=== PATIENT | male | born 1970 | race African-American/Black ===

== ENCOUNTER 2020-09-24 05:35 | Inpatient (IN) ==
[2020-09-24 06:57] LABS: BASOPHILS % (AUTO) 0.3 % (0.2-1.0); EOSINOPHILS % (AUTO) 0.5 % (0.9-2.9); HEMOGLOBIN 10.4 g/dL (13.5-18.0); LYMPHOCYTES # (AUTO) 0.8 X10^3/uL (1.3-2.9); LYMPHOCYTES % (AUTO) 17.8 % (21.0-51.0); MEAN CORPUSCULAR HEMOGLOBIN 23.3 pg (27.0-34.0); MEAN CORPUSCULAR HGB CONC 32.7 g/dL (33.0-35.0); MEAN CORPUSCULAR VOLUME 71.1 fL (80.0-100.0); MEAN PLATELET VOLUME 9.1 fL (7.4-11.0); MONOCYTES # (AUTO) 0.5 x10^3/uL (0.3-0.8); MONOCYTES % (AUTO) 10.6 % (0.0-13.0); NEUTROPHILS # (AUTO) 3.4 x10^3/uL (2.2-4.8); NEUTROPHILS % (AUTO) 70.8 % (42.0-75.0); PLATELET COUNT 187 X10^3/uL (150.0-450.0); RED BLOOD COUNT 4.49 X10^6/uL (4.7-6.0); RED CELL DISTRIBUTION WIDTH 15.4 % (11.6-16.5); WHITE BLOOD COUNT 4.7 X10^3/uL (3.6-10.0)
[2020-09-24 07:05] LABS: BLOOD UREA NITROGEN 11 mg/dL (7-18); CALCIUM 8.3 mg/dL (8.5-10.1); CARBON DIOXIDE 35.4 mmol/L (21-32); CHLORIDE 100 mmol/L (98-107); COR NA(FOR HYPERGLY) 141 mmol/L (136-145); CREATININE 1.01 mg/dL (0.70-1.30); SODIUM 140 mmol/L (136-145); eGFR NON BLACK RACES > 60 (>60)
--- NOTE | 2020-09-24 07:07 | RAD ---
HISTORYCough and wheezingSTUDYAP chestCOMPARISONNoneFINDINGSExtensive bilateral lower lobe airspace disease obscures the lower cardiac margins and diaphragm surfaces. The upper lobes are relatively clear. No pneumothorax is seen.IMPRESSIONBilateral lower lobe densities consistent with pneumonia and/or pulmonary edema. Pleural fluid components are not definitely identified but may be present.Electronically signed by: CHRISTOPHER ABDI (Sep 24, 2020 07:06:00)
[2020-09-24 07:10] LABS: LACTATE DEHYDROGENASE 324 Units/L (85-227)
[2020-09-24 07:11] LABS: LACTIC ACID 1.4 mmol/L (0.4-2.0)
[2020-09-24] MEDS ORDERED: NS + KCL 20 MEQ/L 1,000 ML IV PRN (07:16)
[2020-09-24] MEDS ORDERED: KLOR-CON ONE (07:18)
[2020-09-24] MEDS ORDERED: NS + KCL 20 MEQ/L 1,000 ML IV ONE (07:18)
[2020-09-24] MEDS ORDERED: KLOR-CON PO PRN ×2 (07:19→12:19)
[2020-09-24 07:21] LABS: HYPOCHROMASIA SLIGHT; PLATELET MORPHOLOGY COMMENT NORMAL (NORMAL)
[2020-09-24 07:22] LABS: MICROCYTOSIS SLIGHT
--- NOTE | 2020-09-24 08:35 | DR.URIAD ---
HPI Time Seen Time Seen by Provider: 09/24/20 06:27 PCP Primary Care Physician: HPI Comment HPI Comment: PATIENT IS 50YR OLD MALE IN ER WITH INCREASING SOB AND COUGH AND WHEEZING TIMES ONE MONTH. WORSE TODAY. OXYGEN DESATURATION NOTED IN ER. REPORT CONGESTION FOR FEW DAYS. NO FEVER, NAUSEA, VOMITING OR DIARRHEA. HAVE PLEURITIC CHEST PAIN. Complaint Chief Complaint Doctors Comments: INCREASING SOB AND COUGH TIME ONE MONTH. WORSE TODAY. Chief Complaint:: C/O COUGH AND WHEEZING FOR APPROX 1 MONTH. LEGS AND FETT SWOLLEN COVID-19 Coronavirus risk:travel/contact w/high risk person: No Has patient experienced Coronavirus symptoms: Yes Coronavirus symptoms experienced: Coughing and Shortness of Breath Reviewed Nurses Notes Reviewed: Yes Source History Provided: Patient and Significant Other Mode of Arrival Mode of Arrival: Ambulatory Timing Onset of Chief Complaint: 09/23/20 Context Recent Treated Infections: None History of Respiratory: None Quality Quality of Cough: Productive and Yellow Rhinorrhea: Clear Shortness of Breath: Moderate Associated Signs and Symptoms Other Signs and Symptoms: Cough, Shortness of Breath, URI and Wheeze PMH PMH Past Medical History: Yes Past Medical History: Diabetes and Hypertension Past Surgical History: Yes Surgical History: Tonsillectomy Family History History of Family Medical Conditions: Yes Family Medical History: Diabetes Mellitus, Cancer and Hypertension Social History Does patient currently use any type of tobacco product: No Have you used tobacco products in the last 12 months: No Type of Tobacco Use: None Does any household member use tobacco: No Alcohol Use: Occasionally Do you use any recreational Drugs:: No Lives With: Spouse Lives Where: Home Travel Risk Coronavirus risk:travel/contact w/high risk person: No Has patient experienced Coronavirus symptoms: Yes Coronavirus symptoms experienced: Coughing and Shortness of Breath Infectious screening In the last 2 months have you had wt loss of >10#?: NO Have you had fever, night sweats or hemotysis?: No Have you traveled outside the country in the last 6 months?: No Isolation: Standard ROS Review of Systems Constitutional: See HPI, Weakness and Fatigue; negative Fever Eyes: No Symptoms Reported and See HPI; negative Blurred Vision and Diplopia ENTM: See HPI and Nose Congestion; negative Nose Discharge and Throat Pain Respiratoy: See HPI, Moist Cough, Short of Breath and Wheezing Cardiovascular: See HPI, Chest Pain and Edema Gastrointestinal/Abdominal: No Symptoms Reported and See HPI; negative Abdominal Pain, Diarrhea, Nausea and Vomiting Genitourinary: No Symptoms Reported and See HPI; negative Dysuria, Frequency and Hematuria Neurological: See HPI and Weakness; negative Headache and Dizziness Musculoskeletal: No Symptoms Reported and See HPI; negative Back Pain and Muscle Pain Integumentary: No Symptoms Reported and See HPI; negative Change in Color, Rash and Juandice Hematologic/Lymphatic: No Symptoms Reported and See HPI; negative Easy Bruising and Swollen Glands Endocrine: No Symptoms Reported and See HPI; negative Increased Thirst and Increased Urine Psychiatric: No Symptoms Reported and See HPI All Other Systems: Reviewed and Negative PE Vital Signs Vitals: Temperature 98 F Pulse Rate 77 Respiratory Rate 11 Blood Pressure 177/121 O2 Sat by Pulse Oximetry 100 General Limitations: No Limitations General Appearance: Alert and In No Apparent Distress Head Head Exam: Normal Inspection and Atraumatic Eyes Eye exam: Normal Appearance and PERRL ENT ENT Exam: Normal Exam, Normal Oropharynx, Normal External Ear Exam and TM's Normal Bilaterally External Ear Exam: Normal External Inspection; negative Mastoid Tenderness TM/Canal Exam: Bilateral: Normal Nose Exam: Normal Nose Exam Nasal Speculum Exam: Bilateral: Normal Mouth Exam: Normal Inspection; negative Lip Swelling and Tongue Swelling Throat Exam: Normal Inspection; negative Tonsillar Erythema, Tonsillomegaly and Tonsillar Exudate Neck Neck Exam: Normal Inspection and Trachea Midline; negative Tenderness and Lymphadenopathy Chest Chest Inspection: Normal Inspection and Symmetric Chest Wall Rise; negative Tenderness Respiratory Respiratory Exam: Normal Lung Sounds Bilat, Accessory Muscle Use and Respiratory Distress; negative Chest Wall Tenderness Respiratory Exam: Bilateral: Wheezing and Lower: Wheezing and Lower: Rhonchi Cardiovascular Cardiovascular Exam: Regular Rate, Normal Rhythm and Normal Heart Sounds; negative Systolic Murmur and Diastolic Murmur Abdominal Exam Abdominal Exam: Normal Inspection, Normal Bowel Sounds and Soft; negative Tenderness Extremeties Extremities Exam: Normal Capillary Refill and Edema; negative Tenderness and Calf Tenderness Back Back Exam: Normal Inspection; negative (R) CVA Tenderness and (L) CVA Tenderness Neurologic Neurological Exam: Alert, Oriented X3 and CN II-XII Intact; negative Motor Sensory Deficit Psychiatric Psychiatric Exam: Normal Affect and Normal Mood Skin Skin Exam: negative Warm, Dry, Normal Color and Rash MDM Additional Information Additional Information Obtained From: Family Differential Diagnosis Differential Diagnosis: Viral pharyngitis, Pneumonia, Sinsusitis and URI COURSE Treatment Treatment: SEE ORDERS. Consultation Consultation Comments: DISCUSSED PATIENT WITH DR. MCCORMACK. HE WILL ADMIT PATIENT. Education/Counseling Education/Counseling: Patient Educated On: Diagnosis and Needs for Follow Up ROR Labs Reviewed Laboratory Results Reviewed?: Yes Result Diagrams: 09/27/20 05:40 09/27/20 05:40 Laboratory: 09/24/20 07:55 Blood Blood Culture - Final 09/24/20 07:46 Blood Blood Culture - Final WBC 4.7 X10^3/uL (3.6-10.0) 09/24/20 06:42 RBC 4.49 X10^6/uL (4.7-6.0) L 09/24/20 06:42 Hgb 10.4 g/dL (13.5-18.0) L 09/24/20 06:42 Hct 32.0 % (42.0-54.0) L 09/24/20 06:42 MCV 71.1 fL (80.0-100.0) L 09/24/20 06:42 MCH 23.3 pg (27.0-34.0) L 09/24/20 06:42 MCHC 32.7 g/dL (33.0-35.0) L 09/24/20 06:42 RDW 15.4 % (11.6-16.5) 09/24/20 06:42 Plt Count 187 X10^3/uL (150.0-450.0) 09/24/20 06:42 Plt Count Comment Adequate (ADEQUATE) 09/24/20 06:42 MPV 9.1 fL (7.4-11.0) 09/24/20 06:42 Neut % (Auto) 70.8 % (42.0-75.0) 09/24/20 06:42 Lymph % (Auto) 17.8 % (21.0-51.0) L 09/24/20 06:42 Bosque % (Auto) 10.6 % (0.0-13.0) 09/24/20 06:42 Eos % (Auto) 0.5 % (0.9-2.9) L 09/24/20 06:42 Baso % (Auto) 0.3 % (0.2-1.0) 09/24/20 06:42 Neut # (Auto) 3.4 x10^3/uL (2.2-4.8) 09/24/20 06:42 Lymph # (Auto) 0.8 X10^3/uL (1.3-2.9) L 09/24/20 06:42 [place]que # (Auto) 0.5 x10^3/uL (0.3-0.8) 09/24/20 06:42 Eos # (Auto) 0.0 x10^3/uL (0.0-0.2) 09/24/20 06:42 Baso # (Auto) 0.0 X10^3/uL (0.0-0.1) 09/24/20 06:42 Absolute Nucleated RBC 0.0 /100WBC 09/24/20 06:42 Plt Morphology Comment Normal (NORMAL) 09/24/20 06:42 RBC Morphology Abnormal (NORMAL) 09/24/20 06:42 Hypochromasia Slight A 09/24/20 06:42 Microcytosis Slight A 09/24/20 06:42 D-Dimer 0.50 ug/ml (0.0-0.57) 09/24/20 06:42 Sample Site Rr 09/24/20 09:27 ABG pH 7.510 (7.35-7.45) H 09/24/20 09:27 ABG pCO2 47.0 mmHg (35.0-45.0) H 09/24/20 09:27 ABG pO2 47.0 mmHg (80.0-100.0) L* 09/24/20 09:27 ABG HCO3 37.5 mmol/L (22-26) H* 09/24/20 09:27 ABG O2 Saturation 87.0 % (90-100) L 09/24/20 09:27 ABG Base Excess 12.8 mmol/L (-2.0-2.0) H 09/24/20 09:27 Robinson Test Pos 09/24/20 09:27 A-a Gradient 94.0 mmHg 09/24/20 09:27 FiO2 28.0 09/24/20 09:27 Blood Gas Comments Pt tyra well cdn 09/24/20 09:27 Sodium 140 mmol/L (136-145) 09/24/20 06:42 Corrected Sodium 141 mmol/L (136-145) 09/24/20 06:42 Potassium 2.6 mmol/L (3.5-5.1) L* 09/24/20 09:56 Chloride 100 mmol/L (98-107) 09/24/20 06:42 Carbon Dioxide 35.4 mmol/L (21-32) H 09/24/20 06:42 BUN 11 mg/dL (7-18) 09/24/20 06:42 Creatinine 1.01 mg/dL (0.70-1.30) 09/24/20 06:42 Est GFR (MDRD) Af Amer > 60 (>60) 09/24/20 06:42 Est GFR (MDRD) Non-Af > 60 (>60) 09/24/20 06:42 Glucose 146 mg/dL (65-99) H 09/24/20 06:42 Lactic Acid 1.4 mmol/L (0.4-2.0) 09/24/20 06:42 Calcium 8.3 mg/dL (8.5-10.1) L 09/24/20 06:42 Ferritin 410 ng/mL (26-388) H 09/24/20 06:42 Lactate Dehydrogenase 324 Units/L (85-227) H 09/24/20 06:42 Creatine Kinase 305 Units/L (39-308) 09/24/20 09:56 CK-MB (CK-2) 4.0 ng/mL (0-4.0) 09/24/20 09:56 CK/CKMB % Calc 1.3 % (<4) 09/24/20 09:56 Troponin I 0.03 ng/mL (0-1.5) 09/24/20 09:56 C-Reactive Protein 3.10 mg/L (0-3.0) H 09/24/20 06:42 B-Natriuretic Peptide 517 pg/mL (0-79) H* 09/24/20 06:42 SARS CoV-2 RNA Rapid LAURA Negative (NEGATIVE) 09/24/20 06:40 XRAY XRAY Interpreted by: Radiologist (REPORT NOTED AND DISCUSSED WITH PATIENT.) and Self Opioid Opioid Risk Tool Age (Chris box if 16-45): No History of Preadolescent Sexual Abuse: No Total: 0 Total Score Risk Category: Low Risk Copyright: Chun JOHNSON predicting aberrant behaviors Diagnosis Discharge Problem: Hypokalemia, Hypoxia Pneumonia Qualifiers: Pneumonia type: due to unspecified organism Laterality: bilateral Lung location: lower lobe of lung Qualified Code(s): J18.9 - Pneumonia, unspecified organism Pulmonary edema Qualifiers: Chronicity: acute Qualified Code(s): J81.0 - Acute pulmonary edema Instructions Instructions: Furosemide tablets Tips for Eating Away From Home If You Have Diabetes Incentive Spirometer Hypokalemia Hand Washing, [id number] Upper Respiratory Infection, Adult, [id number] Hypoxia Type 2 Diabetes Mellitus, Self Care, Adult, [id number] How to Take Your Blood Pressure, Ffxs-rt-[id number] Hypertension, [id number] Form - Blood Pressure Record Sheet Weakness Pulmonary Edema, [id number] Peripheral Edema Community-Acquired Pneumonia, Adult, [id number] Diabetes Mellitus and Exercise Diabetes Mellitus and Nutrition Form - Daily Weight Record Forms: Excuse From Work or School Precautions for COVID19 Patient Portal Social Distancing
[2020-09-24] MEDS ORDERED: ROCEPHIN 1 GRAM IV PREMIX 1 G/50 ML IV.SOLN. IV ONE ×2 (08:56→09:14)
[2020-09-24 09:32] LABS: ABG BASE EXCESS 12.8 mmol/L (-2.0-2.0)
[2020-09-24 09:33] LABS: ABG HCO3 37.5 mmol/L (22-26)
[2020-09-24 09:34] LABS: ABG ALLEN TEST POS
[2020-09-24] MEDS ORDERED: LASIX IVP ONE ×2 (09:38→09:39)
[2020-09-24 10:23] LABS: CKMB % 1.3 % (<4); TROPONIN I 0.03 ng/mL (0-1.5)
[2020-09-24] MEDS ORDERED: K-DUR TAB 20 MEQ PO PRN (12:19)
[2020-09-24] MEDS ORDERED: POTASSIUM CHL 60 MEQ/NS 0.45% 500 ML IV PRN (12:19)
[2020-09-24] MEDS ORDERED: MICRO K EXTEN CAP 10 MEQ PO PRN (12:19)
[2020-09-24] MEDS ORDERED: TUSSIONEX PENNKINETIC SUSP PO PRN (12:19)
[2020-09-24] MEDS ORDERED: POTASSIUM CHL 40 MEQ/NS 0.45% 500 ML IV PRN (12:19)
[2020-09-24] MEDS ORDERED: K-RIDER 10 MEQ/NS 100 ML 10 MEQ/100 ML BAG IV PRN (12:19)
[2020-09-24] MEDS ORDERED: POTASSIUM CHLORIDE LIQ 20 MEQ UDC PO PRN (12:19)
[2020-09-24] MEDS ORDERED: APRESOLINE INJ 20 MG VIAL IVP ONE (13:51)
[2020-09-24] MEDS ORDERED: APRESOLINE INJ 20 MG VIAL ONE (13:57)
[2020-09-24] MEDS ORDERED: DUONEB 0.5 MG/3 MG (3 mL) NEB ONE (15:54)
[2020-09-24] MEDS: DUONEB 0.5 MG/3 MG (3 mL) NEB SCH ×2 (15:58→20:13)
[2020-09-24] MEDS: ROBITUSSIN DM PO SCH ×3 (16:13→20:49)
[2020-09-24] MEDS ORDERED: K-DUR TAB 20 MEQ PO ONE (16:31)
[2020-09-24 16:40] LABS: CKMB % 1.5 % (<4); CREATINE KINASE MB 3.9 ng/mL (0-4.0); TROPONIN I 0.03 ng/mL (0-1.5)
[2020-09-24] MEDS: COZAAR PO SCH (16:47)
[2020-09-24] MEDS: COREG TAB 12.5 MG PO SCH (16:48)
[2020-09-24] MEDS ORDERED: PULMICORT NEB TX 0.5 MG NEB SCH (21:00)
[2020-09-24 22:49] LABS: CKMB % 1.4 % (<4); CREATINE KINASE MB 2.7 ng/mL (0-4.0); TROPONIN I 0.03 ng/mL (0-1.5)
[2020-09-25] MEDS: COREG TAB 12.5 MG PO SCH ×3 (00:50→20:30)
[2020-09-25 05:59] LABS: BASOPHILS % (AUTO) 0.4 % (0.2-1.0); EOSINOPHILS % (AUTO) 0.5 % (0.9-2.9); HEMATOCRIT 29.5 % (42.0-54.0); HEMOGLOBIN 9.6 g/dL (13.5-18.0); LYMPHOCYTES # (AUTO) 0.9 X10^3/uL (1.3-2.9); LYMPHOCYTES % (AUTO) 23.9 % (21.0-51.0); MEAN CORPUSCULAR HEMOGLOBIN 23.1 pg (27.0-34.0); MEAN CORPUSCULAR HGB CONC 32.5 g/dL (33.0-35.0); MEAN PLATELET VOLUME 9.5 fL (7.4-11.0); MONOCYTES # (AUTO) 0.3 x10^3/uL (0.3-0.8); MONOCYTES % (AUTO) 7.5 % (0.0-13.0); NEUTROPHILS # (AUTO) 2.5 x10^3/uL (2.2-4.8); NEUTROPHILS % (AUTO) 67.7 % (42.0-75.0); PLATELET COUNT 170 X10^3/uL (150.0-450.0); RED BLOOD COUNT 4.16 X10^6/uL (4.7-6.0); RED CELL DISTRIBUTION WIDTH 15.4 % (11.6-16.5); WHITE BLOOD COUNT 3.7 X10^3/uL (3.6-10.0)
[2020-09-25 06:19] LABS: ALANINE AMINOTRANSFERASE 23 Units/L (12-78); ALBUMIN 2.4 g/dL (3.4-5.0); ALKALINE PHOSPHATASE 89 Units/L (46-116); ASPARTATE AMINO TRANSFERASE 22 Units/L (15-37); BLOOD UREA NITROGEN 10 mg/dL (7-18); CALCIUM 7.9 mg/dL (8.5-10.1); CHLORIDE 103 mmol/L (98-107); COR CA(FOR HYPOALB) 9.2 mg/dL (8.5-10.1); COR NA(FOR HYPERGLY) 144 mmol/L (136-145); CREATININE 0.89 mg/dL (0.70-1.30); SODIUM 143 mmol/L (136-145); TOTAL PROTEIN 6.1 g/dL (6.4-8.2); eGFR NON BLACK RACES > 60 (>60)
[2020-09-25 06:29] LABS: HYPOCHROMASIA 1+; MICROCYTOSIS SLIGHT; PLATELET MORPHOLOGY COMMENT NORMAL (NORMAL)
[2020-09-25] MEDS ORDERED: K-DUR TAB 20 MEQ PO SCH (09:00)
[2020-09-25] MEDS ORDERED: ROCEPHIN 1 GRAM IV PREMIX 1 G/50 ML IV.SOLN. IV SCH (09:00)
[2020-09-25] MEDS: K-DUR TAB 20 MEQ PO SCH ×2 (09:19→20:30)
[2020-09-25] MEDS: COZAAR PO SCH (09:19)
[2020-09-25] MEDS: VSL#3 PO SCH (09:19)
[2020-09-25] MEDS: LASIX IVP SCH (09:22)
[2020-09-25] MEDS: GLUCOPHAGE XR 24-HR PO SCH ×2 (09:37→20:30)
[2020-09-25 10:20] VITALS: BMI 26.2
[2020-09-25] MEDS: APRESOLINE TAB 25 MG PO SCH ×2 (20:30→21:24)
[2020-09-26] MEDS: APRESOLINE TAB 25 MG PO SCH ×3 (05:07→20:57)
--- NOTE | 2020-09-26 06:35 | RAD ---
HISTORYCHFSTJESSICA POSADAS/LAT [id number]/28/2021.TECHNIQUE2 views of the chestFINDINGSCardiac silhouette is mildly enlarged. There is silhouetting of the left heart border. Similar appearance of left worse than right base pleural parenchymal opacities. No discernible pneumothorax.IMPRESSIONNo significant change. Bibasilar pleural parenchymal opacities similar to prior.Electronically signed by: Ced Jones (Sep 26, 2020 06:33:06)
[2020-09-26] MEDS: MAGNESIUM SULFATE 1 GRAM/100 mL PREMIX 4 G/400 ML BAG IV SCH ×4 (09:06→14:14)
[2020-09-26] MEDS: LASIX IVP SCH (09:08)
[2020-09-26] MEDS: VSL#3 PO SCH (09:08)
[2020-09-26] MEDS: GLUCOPHAGE XR 24-HR PO SCH (09:09)
[2020-09-26] MEDS: K-DUR TAB 20 MEQ PO SCH ×3 (09:09→20:54)
[2020-09-26] MEDS: COZAAR PO SCH (09:09)
[2020-09-26] MEDS: COREG TAB 12.5 MG PO SCH ×2 (09:10→20:55)
[2020-09-26] MEDS ORDERED: NS 100 ML IV 100 ML IV ONE (10:48)
[2020-09-26] MEDS: RHINOCORT ALLERGY NASAL SPRAY ENOSTRIL SCH (10:53)
--- NOTE | 2020-09-26 12:20 | CT ---
CHEST WITH CONCLINICAL INDICATION: PULMONARY HYPERTENSION, CHF, PNEUMONIAPROCEDURE: Following administration of non-ionic IV contrast, postcontrast CT images were obtained through the chest. Dose reduction techniques including Automated Exposure Control (AEC) and adjustment of mA and kV were utlized.COMPARISON: [None]FINDINGS:The heart is normal in size . No pericardial effusion . No suspicious mediastinal or axillary lymph nodes. Large bilateral pleural effusions with adjacent atelectasis. Mild pulmonary edema like pattern..Airways are patent . No suspicious pulmonary nodules or masses .Limited images of the upper abdomen are unremarkable.No aggressive osseous lesions.IMPRESSION:1. Large bilateral pleural effusions with adjacent atelectasis.Electronically signed by: JOSÉ HOGAN (Sep 26, 2020 12:17:45)
[2020-09-27] MEDS: APRESOLINE TAB 25 MG PO SCH (05:26)
[2020-09-27 06:17] LABS: BASOPHILS % (AUTO) 0.3 % (0.2-1.0); EOSINOPHILS % (AUTO) 0.4 % (0.9-2.9); HEMATOCRIT 27.8 % (42.0-54.0); LYMPHOCYTES # (AUTO) 0.7 X10^3/uL (1.3-2.9); LYMPHOCYTES % (AUTO) 15.9 % (21.0-51.0); MEAN CORPUSCULAR HEMOGLOBIN 23.1 pg (27.0-34.0); MEAN CORPUSCULAR HGB CONC 32.5 g/dL (33.0-35.0); MEAN CORPUSCULAR VOLUME 71.2 fL (80.0-100.0); MEAN PLATELET VOLUME 8.8 fL (7.4-11.0); MONOCYTES # (AUTO) 0.4 x10^3/uL (0.3-0.8); MONOCYTES % (AUTO) 8.8 % (0.0-13.0); NEUTROPHILS # (AUTO) 3.3 x10^3/uL (2.2-4.8); NEUTROPHILS % (AUTO) 74.6 % (42.0-75.0); PLATELET COUNT 207 X10^3/uL (150.0-450.0); WHITE BLOOD COUNT 4.4 X10^3/uL (3.6-10.0)
[2020-09-27 06:22] LABS: ALANINE AMINOTRANSFERASE 19 Units/L (12-78); ALBUMIN 2.3 g/dL (3.4-5.0); ALKALINE PHOSPHATASE 83 Units/L (46-116); ASPARTATE AMINO TRANSFERASE 20 Units/L (15-37); BLOOD UREA NITROGEN 14 mg/dL (7-18); CALCIUM 8.2 mg/dL (8.5-10.1); CHLORIDE 101 mmol/L (98-107); COR CA(FOR HYPOALB) 9.6 mg/dL (8.5-10.1); COR NA(FOR HYPERGLY) 139 mmol/L (136-145); CREATININE 0.91 mg/dL (0.70-1.30); SODIUM 138 mmol/L (136-145); TOTAL PROTEIN 6.1 g/dL (6.4-8.2); eGFR NON BLACK RACES > 60 (>60)
[2020-09-27 06:45] LABS: HYPOCHROMASIA 1+; PLATELET MORPHOLOGY COMMENT NORMAL (NORMAL)
[2020-09-27 06:46] LABS: MICROCYTOSIS SLIGHT
[2020-09-27 08:10] VITALS: BP 132/76
[2020-09-27] MEDS: LASIX IVP SCH (09:16)
[2020-09-27] MEDS: COREG TAB 12.5 MG PO SCH (09:16)
[2020-09-27] MEDS: COZAAR PO SCH (09:17)
[2020-09-27] MEDS: K-DUR TAB 20 MEQ PO SCH (09:17)
[2020-09-27] MEDS: VSL#3 PO SCH (09:20)
[2020-09-27] MEDS: RHINOCORT ALLERGY NASAL SPRAY ENOSTRIL SCH (09:22)
== END 2020-09-27 17:10 | disposition home or self-care (01) | DRG 291 ==
LOC: ER 05:43 → MED/SURG 11:16
PROVIDERS: ADMIT Obstetrics & Gynecology Obstetrics; ATTEND Obstetrics & Gynecology Obstetrics
DX: R94.31 Abnormal electrocardiogram [ECG] [EKG]; E87.6 Hypokalemia; R79.89 Other specified abnormal findings of blood chemistry; Z20.822 Contact with and (suspected) exposure to COVID-19; E11.65 Type 2 diabetes mellitus with hyperglycemia; R79.82 Elevated C-reactive protein (CRP); I50.9 Heart failure, unspecified; I11.0 Hypertensive heart disease with heart failure; J81.0 Acute pulmonary edema; R06.02 Shortness of breath